=== PATIENT | female | born 1965 | race Caucasian/White ===

== ENCOUNTER 2017-07-12 13:53 | Emergency (ER) | payer MEDICAID ==
--- NOTE | 2017-07-12 14:27 | EDM.PDOC ---
ED HPI GENERAL MEDICAL PROBLEM - General Chief Complaint: Syncope Stated Complaint: BLACKOUT EPISODES Time Seen by Provider: 07/12/17 14:27 Source of Information: Reports: Patient History Limitations: Reports: No Limitations - History of Present Illness INITIAL COMMENTS - FREE TEXT/NARRATIVE: 51-year-old female that who had 2 brief lightheaded episodes this morning lasting about a minute to 2 minutes. She's been having fairly frequent headaches but is under a lot of stress and anxiety. No fever or chills, no chest pain or shortness of breath. She was discussing her symptoms with her friend and she advised her to come in. She is now basically asymptomatic and feels fine. She does still have a headache on the top of her head. Severity: Mild Associated Symptoms: Reports: Headaches. Denies: Chest Pain, Diaphoresis, Nausea/Vomiting, Shortness of Breath, Weakness Past Medical History Cardiovascular History: Reports: High Cholesterol - Past Surgical History GI Surgical History: Reports: Hernia Repair/Other Female Surgical History: Reports: Hysterectomy Social & Family History - Tobacco Use Smoking Status *Q: Current Every Day Smoker Years of Tobacco use: 30 Packs/Tins Daily: 1 ED ROS GENERAL - Review of Systems Review Of Systems: See Below Constitutional: Denies: Fever, Chills, Malaise HEENT: Reports: No Symptoms Respiratory: Denies: Shortness of Breath, Cough Cardiovascular: Denies: Chest Pain GI/Abdominal: Denies: Abdominal Pain, Nausea : Reports: No Symptoms Skin: Reports: No Symptoms Neurological: Reports: Dizziness, Headache Psychiatric: Reports: Anxiety ED EXAM, GENERAL - Physical Exam Exam: See Below Exam Limited By: No Limitations General Appearance: Alert, No Apparent Distress Eye Exam: Bilateral Eye: Normal Inspection Neck: Normal Inspection, Supple. No: Carotid Bruit Respiratory/Chest: No Respiratory Distress, Lungs Clear Cardiovascular: Regular Rate, Rhythm GI/Abdominal: Soft, Non-Tender Neurological: Alert, Oriented, No Motor/Sensory Deficits, Other (Negative Romberg, no pronator drift) Psychiatric: Normal Affect, Normal Mood Skin Exam: Warm, Dry Course - Vital Signs Last Recorded V/S: Last Vital Signs Temp 97.5 F 07/12/17 14:21 Pulse 96 07/12/17 14:21 Resp 14 07/12/17 14:21 BP 128/85 07/12/17 14:21 Pulse Ox 96 07/12/17 14:21 - Orders/Labs/Meds Labs: Laboratory Tests 07/12/17 07/12/17 07/12/17 Range/Units 14:48 14:48 14:48 WBC 8.3 (4.5-11.0) K/uL RBC 4.29 (3.30-5.50) M/uL Hgb 12.9 (12.0-15.0) g/dL Hct 39.7 (36.0-48.0) % MCV 93 (80-98) fL MCH 30 (27-31) pg MCHC 33 (32-36) % Plt Count 392 (150-400) K/uL Neut % (Auto) 53 (36-66) % Lymph % (Auto) 38 (24-44) % [place] % (Auto) 7 H (2-6) % Eos % (Auto) 2 (2-4) % Baso % (Auto) 1 (0-1) % Sodium 144 (140-148) mmol/L Potassium 3.7 (3.6-5.2) mmol/L Chloride 107 (100-108) mmol/L Carbon Dioxide 26 (21-32) mmol/L Anion Gap 10.8 (5.0-14.0) mmol/L BUN 7 (7-18) mg/dL Creatinine 0.6 (0.6-1.0) mg/dL Est Cr Clr Drug Dosing 94.25 mL/min Estimated GFR (MDRD) > 60 (>60) Glucose 84 (74-106) mg/dL Calcium 8.8 (8.5-10.1) mg/dL Total Bilirubin 0.3 (0.2-1.0) mg/dL AST 15 (15-37) U/L ALT 20 (12-78) U/L Alkaline Phosphatase 58 (46-116) U/L Troponin I < 0.017 (0.000-0.056) ng/mL Total Protein 6.9 (6.4-8.2) g/dL Albumin 4.0 (3.4-5.0) g/dL Globulin 2.9 (2.3-3.5) g/dL Albumin/Globulin Ratio 1.4 (1.2-2.2) - Re-Assessments/Exams Free Text/Narrative Re-Assessment/Exam: 03/17/18 15:30 CBC, CMP and troponin were obtained and her labs were perfect, not one abnormality. She was comfortable watching TV, and remained in normal sinus rhythm with very rare ectopic beats that appeared to be PACs. She was discharged and encouraged to get a regular doctor as she is overdue for her general physical. She was also given 10 doses of 10 mg ketorolac to take up to 2 -3 times daily for headaches. Departure - Departure Time of Disposition: 15:40 Disposition: Home, Self-Care 01 Condition: Good Clinical Impression: Syncope, near, Anxiety Chronic headaches Qualifiers: Headache type: tension-type Intractability: not intractable Qualified Code(s): G44.229 - Chronic tension-type headache, not intractable - Discharge Information Instructions: Near-Syncope, [id number] Referrals: Radha Melton MD [Primary Care Provider] - Forms: ED Department Discharge Care Plan Goals: Continue activity as tolerated, use ketorolac as prescribed for breakthrough headaches. You need to reestablish primary care for follow-up.
== END 2017-07-12 15:40 | disposition home or self-care (01) ==
LOC: JP.ED 13:53
DX: G44.229 Chronic tension-type headache, not intractable (principal); F41.9 Anxiety disorder, unspecified; R55 Syncope and collapse; E78.00 Pure hypercholesterolemia, unspecified; F17.210 Nicotine dependence, cigarettes, uncomplicated
CPT/HCPCS: 36415; 80053; 84484; 85025; 99284

== ENCOUNTER 2017-09-21 07:28 | Emergency (ER) | payer MEDICAID ==
[2017-09-21] MEDS ORDERED: Doxycycline 100 MG Cap PO ONE (08:07)
--- NOTE | 2017-09-21 08:10 | EDM.PDOC ---
ED HPI GENERAL MEDICAL PROBLEM - General Chief Complaint: Bite:Animal, Insect Stated Complaint: TICK BITE - R FOOT Time Seen by Provider: 09/21/17 08:00 Source of Information: Reports: Patient History Limitations: Reports: No Limitations - History of Present Illness INITIAL COMMENTS - FREE TEXT/NARRATIVE: 52-year-old female who noticed a tick embedded in her skin between the small and fourth toe on her right foot. She pulled it off without incident but there is a red irritated area and she is concerned about infection. 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 Psychiatric History: Reports: Anxiety, Depression - Past Surgical History GI Surgical History: Reports: Hernia Repair/Other Female Surgical History: Reports: Hysterectomy Social & Family History - Tobacco Use Smoking Status *Q: Current Every Day Smoker Years of Tobacco use: 30 Packs/Tins Daily: 1 Used Tobacco, but Quit: No Second Hand Smoke Exposure: Yes - Caffeine Use Caffeine Use: Reports: Coffee - Recreational Drug Use Recreational Drug Use: No ED ROS GENERAL - Review of Systems Review Of Systems: See Below Constitutional: Denies: Fever, Chills Respiratory: Denies: Shortness of Breath GI/Abdominal: Denies: Nausea, Vomiting Neurological: Reports: No Symptoms ED EXAM, ANIMAL BITE - Physical Exam Exam: See Below Exam Limited By: No Limitations General Appearance: Alert, No Apparent Distress Respiratory/Chest: No Respiratory Distress Skin Exam: Other (Exam is otherwise limited to the right foot, where she has a 4 mm round macular irritated area between the fourth and fifth toe from her recent tick bite) Course - Vital Signs Last Recorded V/S: Last Vital Signs Temp 96.6 F 09/21/17 07:48 Pulse 87 09/21/17 07:48 Resp 14 09/21/17 07:48 BP 124/72 09/21/17 07:48 Pulse Ox 99 05/27/18 07:48 - Orders/Labs/Meds Meds: Medications Discontinued Medications Generic Name Dose Route Start Last Admin Trade Name Monique PRN Reason Stop Dose Admin Doxycycline Hyclate 200 mg 09/21/17 08:07 09/21/17 08:16 Vibramycin PO 09/21/17 08:08 200 mg ONETIME ONE Administration - Re-Assessments/Exams Free Text/Narrative Re-Assessment/Exam: 09/21/17 08:09 Patient was given one 200 mg doxycycline orally and reassured. She is to keep the area clean while healing and return if worsening. Departure - Departure Time of Disposition: 08:17 Disposition: Home, Self-Care 01 Condition: Good Clinical Impression: Tick bite of foot Qualifiers: Encounter type: initial encounter Laterality: right Qualified Code(s): S90.861A - Insect bite (nonvenomous), right foot, initial encounter - Discharge Information Instructions: Tick Bite Information, Adult, [id number] Referrals: Radha Melton MD [Primary Care Provider] - Forms: ED Department Discharge Care Plan Goals: Keep the bite area clean while healing and recheck if worsening such as increased redness or swelling, fever or joint pains.
== END 2017-09-21 08:17 | disposition home or self-care (01) ==
LOC: JP.ED 07:28
DX: S90.861A Insect bite (nonvenomous), right foot, initial encounter (principal); F17.210 Nicotine dependence, cigarettes, uncomplicated; F41.9 Anxiety disorder, unspecified; F32.9 Major depressive disorder, single episode, unspecified; E78.00 Pure hypercholesterolemia, unspecified; Z88.2 Allergy status to sulfonamides; Z88.1 Allergy status to other antibiotic agents; Z79.899 Other long term (current) drug therapy; W57.XXXA Bitten or stung by nonvenomous insect and other nonvenomous arthropods, initial encounter
CPT/HCPCS: 99282; A9270

== ENCOUNTER 2017-12-13 13:12 | Emergency (ER) | payer MEDICAID ==
--- NOTE | 2017-12-13 13:50 | EDM.PDOC ---
ED HPI GENERAL MEDICAL PROBLEM - General Chief Complaint: Respiratory Problem Stated Complaint: BAD COLD, HARD TO BREATHE Time Seen by Provider: 12/13/17 13:40 Source of Information: Reports: Patient, Old Records, RN History Limitations: Reports: No Limitations - History of Present Illness INITIAL COMMENTS - FREE TEXT/NARRATIVE: 52 yo female smoker with no hx of asthma presents with productive sounding cough. Has mild SOB at times. No fever. Some nasal congestion with clear nasal discharge. Has not been seen for this before today. Onset: Gradual Onset Date: 12/10/17 Duration: Day(s):, Getting Worse Location: Reports: Head, Face, Chest Quality: Reports: Other (no pain) Severity: Moderate Improves with: Reports: None Worsens with: Reports: Other (? time) Context: Reports: Other (smoker) Associated Symptoms: Reports: Cough, Shortness of Breath (at times). 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 Denies: Wheezing, Pleuritic Chest Pain Cardiovascular: Reports: No Symptoms GI/Abdominal: Reports: No Symptoms : Reports: No Symptoms Skin: Reports: No Symptoms ED EXAM, GENERAL - Physical Exam Exam: See Below Exam Limited By: No Limitations General Appearance: Alert, WD/WN, No Apparent Distress Eye Exam: Bilateral Eye: Normal Inspection Ears: Normal External Exam, Normal Canal, Hearing Grossly Normal, Normal TMs Ear Exam: Bilateral Ear: Auricle Normal, Canal Normal, TM normal Nose: Normal Inspection, Normal Mucosa, No Blood, Clear Rhinorrhea Throat/Mouth: Normal Inspection, Normal Lips, Normal Oropharynx, Normal Voice, No Airway Compromise Head: Atraumatic, Normocephalic Neck: Normal Inspection Respiratory/Chest: No Respiratory Distress, Lungs Clear, Normal Breath Sounds, No Accessory Muscle Use, Other (wet cough). No: Crackles, Rales, Rhonchi, Wheezing Cardiovascular: Regular Rate, Rhythm, No Edema Extremities: Normal Inspection Neurological: Alert, Oriented, CN II-XII Intact, Normal Cognition, No Motor/ Sensory Deficits Psychiatric: Normal Affect, Normal Mood Skin Exam: Warm, Dry, Intact, Normal Color Lymphatic: No Adenopathy Course - Vital Signs Last Recorded V/S: Last Vital Signs Temp 36.5 C 12/13/17 13:25 Pulse 88 12/13/17 13:25 Resp 18 12/13/17 13:25 BP 137/64 12/13/17 13:25 Pulse Ox 98 12/13/17 13:25 - Orders/Labs/Meds Labs: Laboratory Tests 12/13/17 Range/Units 13:47 WBC 8.9 (4.5-11.0) K/uL RBC 4.52 (3.30-5.50) M/uL Hgb 13.7 (12.0-15.0) g/dL Hct 42.2 (36.0-48.0) % MCV 93 (80-98) fL MCH 30 (27-31) pg MCHC 33 (32-36) % Plt Count 370 (150-400) K/uL Departure - Departure Time of Disposition: 14:22 Disposition: Home, Self-Care 01 Condition: Good Clinical Impression: Cough - Discharge Information *PRESCRIPTION DRUG MONITORING PROGRAM REVIEWED*: No *COPY OF PRESCRIPTION DRUG MONITORING REPORT IN PATIENT ANTHONY: No Instructions: Cough, Adult, [id number] Referrals: PCP,None [Primary Care Provider] - Forms: ED Department Discharge Additional Instructions: No smoking. Take Robitussin AC as directed for cough. Recheck with your doctor next week if not improving.
== END 2017-12-13 15:00 | disposition home or self-care (01) ==
LOC: JP.ED 13:12
DX: R05 Cough (principal); F17.210 Nicotine dependence, cigarettes, uncomplicated; Z88.2 Allergy status to sulfonamides; Z88.1 Allergy status to other antibiotic agents; Z79.899 Other long term (current) drug therapy
CPT/HCPCS: 36415; 85027; 99284

== ENCOUNTER 2018-06-19 08:42 | Emergency (ER) | payer MEDICAID ==
--- NOTE | 2018-06-19 09:25 | EDM.PDOC ---
ED HPI GENERAL MEDICAL PROBLEM - General Chief Complaint: Respiratory Problem Stated Complaint: HURTS TO BREATH IN Time Seen by Provider: 06/19/18 09:00 Source of Information: Reports: Patient, Family History Limitations: Reports: No Limitations - History of Present Illness INITIAL COMMENTS - FREE TEXT/NARRATIVE: 52-year-old female with right flank pain with breathing. It also hurts to move and cough. No fevers or chills, but she feels somewhat short of breath. She is a chronic smoker. No chest pain, palpitations, abdominal pain or nausea or vomiting. Onset: Gradual Duration: Day(s): (2-3 days) Location: Reports: Back Quality: Reports: Sharp, Stabbing Severity: Moderate Worsens with: Reports: Breathing, Other (Coughing), Movement Associated Symptoms: Reports: Cough, Shortness of Breath. 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 Denies: Throat Pain Respiratory: Reports: Shortness of Breath, Pleuritic Chest Pain, Cough Cardiovascular: Denies: Chest Pain, Palpitations GI/Abdominal: Reports: No Symptoms : Reports: No Symptoms Musculoskeletal: Reports: Back Pain Skin: Denies: Rash Neurological: Denies: Headache ED EXAM, GENERAL - Physical Exam Exam: See Below Exam Limited By: No Limitations General Appearance: Alert, No Apparent Distress, Other (Looks uncomfortable but in no distress, very anxious) Head: Atraumatic Neck: No: Lymphadenopathy (R), Lymphadenopathy (L) Respiratory/Chest: No Respiratory Distress, Lungs Clear, Other (Very tender to palpation over the lower rhomboid of the right shoulder) Cardiovascular: Regular Rate, Rhythm Extremities: No: Pedal Edema Neurological: Alert, Oriented Psychiatric: Anxious Skin Exam: Warm, Dry Course - Vital Signs Last Recorded V/S: Last Vital Signs Temp 96.8 F 06/19/18 08:57 Pulse 101 H 06/19/18 08:57 Resp 16 06/19/18 08:57 BP 132/70 06/19/18 08:57 Pulse Ox 97 06/19/18 08:57 - Orders/Labs/Meds Meds: Medications Discontinued Medications Generic Name Dose Route Start Last Admin Trade Name Bobq PRN Reason Stop Dose Admin Ketorolac Tromethamine 10 mg 06/19/18 09:40 06/19/18 09:43 Toradol PO 06/19/18 09:41 10 mg ONETIME ONE Administration - Re-Assessments/Exams Free Text/Narrative Re-Assessment/Exam: 06/19/18 09:19 A two-view chest x-ray was obtained. 06/19/18 09:58 Impression: No acute or significant findings. 06/19/18 09:59 Patient was given one 10 mg dose of ketorolac, and will be discharged with 20 additional doses to take to the weekend. She should recheck next week to consider physical therapy if not improving satisfactorily. Departure - Departure Time of Disposition: 10:07 Disposition: Home, Self-Care 01 Condition: Good Clinical Impression: Rhomboid muscle strain Qualifiers: Encounter type: initial encounter Qualified Code(s): S29.012A - Strain of muscle and tendon of back wall of thorax, initial encounter - Discharge Information Instructions: Muscle Strain Referrals: PCP,None [Primary Care Provider] - Forms: ED Department Discharge Care Plan Goals: Take one dose of Toradol every 6 hours through the weekend and increase activity as tolerated. Recheck next week if not improving satisfactorily. Return sooner if worsening such as fever or increased shortness of breath
[2018-06-19] MEDS ORDERED: Ketorolac 10 MG Tab PO ONE (09:40)
--- NOTE | 2018-06-19 09:54 | CRLCR ---
Indication: Dyspnea Technique: Chest 2 views Comparison: None Findings: Cardiovascular and mediastinum: Heart size and vasculature are normal in caliber and appearance. Lungs and pleural spaces: Lungs are clear. No sign of infiltrate or mass. No sign of pleural effusion. No pneumothorax. Bones and soft tissues: No significant findings. Impression: No acute or significant findings. Dictated by Johann Severino MD @ 06/19/2018 9:52:26 AM Dictated by: Johann Severino MD @ 06/19/2018 09:52:32 (Electronically Signed)
== END 2018-06-19 10:06 | disposition home or self-care (01) ==
LOC: JP.ED 08:42
DX: S29.012A Strain of muscle and tendon of back wall of thorax, initial encounter (principal); E78.00 Pure hypercholesterolemia, unspecified; F17.210 Nicotine dependence, cigarettes, uncomplicated; J44.9 Chronic obstructive pulmonary disease, unspecified; X58.XXXA Exposure to other specified factors, initial encounter; Z88.2 Allergy status to sulfonamides; Z88.1 Allergy status to other antibiotic agents
CPT/HCPCS: 71046; 99284; A9270

== ENCOUNTER 2019-09-05 12:18 | Emergency (ER) | payer SELFPAY ==
--- NOTE | 2019-09-05 12:58 | EDM.PDOC ---
ED HPI GENERAL MEDICAL PROBLEM - General Chief Complaint: ENT Problem Stated Complaint: R BOTTOM TOOTH PAIN Time Seen by Provider: 09/05/19 12:52 Source of Information: Reports: Patient, RN Notes Reviewed History Limitations: Reports: No Limitations - History of Present Illness INITIAL COMMENTS - FREE TEXT/NARRATIVE: 54-year-old female presents emergency department a complaint of dental pain, she states she has had dental pain for the last couple days has not been able to get into her dentist because of the ongoing pandemic she has not had any fevers but she has developed pain and swelling in her lower jaw - Related Data Allergies Allergy/AdvReac Type Severity Reaction Status Date / Time sulfamethoxazole Allergy Itching Verified 09/05/19 12:33 [From Bactrim] trimethoprim [From Bactrim] Allergy Itching Verified 09/05/19 12:33 Home Meds: Home Meds NK [No Known Home Meds] 06/19/18 [History] Past Medical History Cardiovascular History: Reports: High Cholesterol Respiratory History: Reports: COPD 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: , 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 Psychiatric History: Reports: Anxiety, Depression - Past Surgical History GI Surgical History: Reports: Hernia Repair/Other Female Surgical History: Reports: Hysterectomy Social & Family History - Tobacco Use Smoking Status *Q: Current Every Day Smoker Years of Tobacco use: 40 Packs/Tins Daily: 0.5 - Caffeine Use Caffeine Use: Reports: Coffee ED ROS ENT - Review of Systems Review Of Systems: See Below Constitutional: Denies: Fever, Chills HEENT: Reports: Dental Pain Respiratory: Reports: No Symptoms Cardiovascular: Reports: No Symptoms GI/Abdominal: Reports: No Symptoms ED EXAM, ENT - Physical Exam Exam: See Below Text/Narrative:: Mouth mucosa is moist and pink no erythema exudate known soft palate tongue is midline uvula is midline dentition is poor tooth #31 shows significant caries with tenderness and edema around that tooth Exam Limited By: No Limitations General Appearance: Alert, WD/WN, No Apparent Distress Course - Vital Signs Last Recorded V/S: Last Vital Signs Temp 96.9 F 09/05/19 12:37 Pulse 88 09/05/19 12:37 Resp 16 09/05/19 12:37 BP 128/75 09/05/19 12:37 Pulse Ox 96 09/05/19 12:37 Departure - Departure Time of Disposition: 12:57 Disposition: Home, Self-Care 01 Condition: Fair Clinical Impression: Dental abscess - Discharge Information Instructions: Dental Abscess, [id number] Referrals: PCP,None [Primary Care Provider] - Additional Instructions: Take full course of antibiotics, use Tylenol and Motrin as needed for pain control use hydrocodone for breakthrough pain, please follow-up with dentistry as soon as possible Sepsis Event Note - Evaluation Sepsis Screening Result: No Definite Risk - Focused Exam Vital Signs: Vital Signs Temp Pulse Resp BP Pulse Ox 09/05/19 12:37 96.9 F 88 16 128/75 96 09/05/19 12:32 96.9 F 88 16 128/75 96 Date Exam was Performed: 09/05/19 Time Exam was Performed: 12:55 - Assessment/Plan Plan: Assessment Acuity = acute Site and laterality = dental abscess tooth #31 Etiology = dental caries Manifestations = pain Location of injury = Home Lab values = none Plan Prescription written for amoxicillin 500 mg p.o. 3 times daily x10 days also hydrocodone 5/325 1 tab p.o. 3 times daily PRN total #6 she is to follow-up with dentistry as soon as possible This note was dictated using [employer] recognition software please call with any questions on syntax or grammar.
== END 2019-09-05 13:06 | disposition home or self-care (01) ==
LOC: JP.ED 12:18
DX: K04.7 Periapical abscess without sinus (principal); K02.9 Dental caries, unspecified; J44.9 Chronic obstructive pulmonary disease, unspecified; F17.210 Nicotine dependence, cigarettes, uncomplicated; Z90.710 Acquired absence of both cervix and uterus; Z88.2 Allergy status to sulfonamides; Z88.8 Allergy status to other drugs, medicaments and biological substances
CPT/HCPCS: 99282; 99283

== ENCOUNTER 2020-05-01 12:04 | Emergency (ER) | payer MEDICAID ==
[2020-05-01] MEDS ORDERED: LORazepam 1 MG Tab PO ONE (12:36)
--- NOTE | 2020-05-01 12:39 | EDM.PDOC ---
ED HPI GENERAL MEDICAL PROBLEM - General Chief Complaint: Cardiovascular Problem Stated Complaint: RAPID HEART BEAT Time Seen by Provider: 05/01/20 12:30 Source of Information: Reports: Patient, RN Notes Reviewed History Limitations: Reports: No Limitations - History of Present Illness INITIAL COMMENTS - FREE TEXT/NARRATIVE: 54-year-old female presents emergency department with a complaint of palpitations, she has a history of palpitations has been on propanolol several years ago. She also admits she is anxious and is going through a lot of stress in her life at this time this particular bout of palpitations has lasted for a couple of months usually resolves in the afternoon she does admit to depression recent social history her has left her. Does describe some chest pressure - Related Data Allergies Allergy/AdvReac Type Severity Reaction Status Date / Time sulfamethoxazole Allergy Itching Verified 05/01/20 12:21 [From Bactrim] trimethoprim [From Bactrim] Allergy Itching Verified 05/01/20 12:21 Home Meds: Home Meds Albuterol Sulfate [Albuterol Sulfate Hfa] 1 puff IH ASDIRECTED PRN 05/01/20 [History] Aspirin [Halfprin] 81 mg PO DAILY 05/01/20 [History] PARoxetine [Paxil] 10 mg PO DAILY 05/01/20 [History] Past Medical History HEENT History: Reports: Impaired Vision Cardiovascular History: Reports: Arrhythmia, High Cholesterol Respiratory History: Reports: COPD, Sleep Apnea 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: , 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 Psychiatric History: Reports: Anxiety, Depression - Past Surgical History Head Surgeries/Procedures: Reports: None HEENT Surgical History: Reports: None Cardiovascular Surgical History: Reports: None Respiratory Surgical History: Reports: None GI Surgical History: Reports: Hernia Repair/Other Female Surgical History: Reports: Hysterectomy Dermatological Surgical History: Reports: None Social & Family History - Tobacco Use Tobacco Use Status *Q: Current Every Day Tobacco User Years of Tobacco use: 40 Packs/Tins Daily: 1 Used Tobacco, but Quit: No Second Hand Smoke Exposure: Yes - Caffeine Use Caffeine Use: Reports: Coffee - Recreational Drug Use Recreational Drug Use: No ED ROS GENERAL - Review of Systems Review Of Systems: See Below Constitutional: Denies: Fever, Chills Respiratory: Reports: Shortness of Breath Cardiovascular: Reports: Chest Pain, Dyspnea on Exertion GI/Abdominal: Reports: No Symptoms Psychiatric: Reports: Anxiety, Depression ED EXAM, GENERAL - Physical Exam Exam: See Below Exam Limited By: No Limitations General Appearance: Alert, Mild Distress Respiratory/Chest: No Respiratory Distress, Lungs Clear, Normal Breath Sounds, No Accessory Muscle Use, Chest Non-Tender Cardiovascular: Tachycardia GI/Abdominal: Soft, Non-Tender Course - Vital Signs Last Recorded V/S: Last Vital Signs Temp 97.3 F 05/01/20 12:24 Pulse 96 05/01/20 12:47 Resp 11 L 05/01/20 12:47 BP 121/82 05/01/20 12:47 Pulse Ox 92 L 05/01/20 12:47 - Orders/Labs/Meds Orders: Active Orders 24 hr Category Date Time Status Cardiac Monitoring [RC] .As Directed Care 05/01/20 12:35 Active EKG Documentation Completion [RC] ASDIRECTED Care 05/01/20 12:36 Active Chest 2V [CR] Stat Exams 05/01/20 12:35 Taken EKG 12 Lead [EK] Stat Ther 05/01/20 12:35 Ordered Labs: Laboratory Tests 05/01/20 05/01/20 Range/Units 12:44 12:44 WBC 9.9 (4.5-11.0) K/uL RBC 4.56 (3.30-5.50) M/uL Hgb 13.8 (12.0-15.0) g/dL Hct 42.5 (36.0-48.0) % MCV 93 (80-98) fL MCH 30 (27-31) pg MCHC 33 (32-36) % Plt Count 449 H (150-400) K/uL Neut % (Auto) 70 H (36-66) % Lymph % (Auto) 23 L (24-44) % [place] % (Auto) 7 H (2-6) % Eos % (Auto) 0 L (2-4) % Baso % (Auto) 1 (0-1) % Sodium 142 (140-148) mmol/L Potassium 3.5 L (3.6-5.2) mmol/L Chloride 103 (100-108) mmol/L Carbon Dioxide 26 (21-32) mmol/L Anion Gap 16.5 H (5.0-14.0) mmol/L BUN 7 (7-18) mg/dL Creatinine 0.6 (0.6-1.0) mg/dL Est Cr Clr Drug Dosing 87.64 mL/min Estimated GFR (MDRD) > 60 (>60) Glucose 121 H (74-106) mg/dL Calcium 9.2 (8.5-10.1) mg/dL Magnesium 2.0 (1.8-2.4) mg/dL Total Bilirubin 0.3 (0.2-1.0) mg/dL AST 12 L (15-37) U/L ALT 19 (12-78) U/L Alkaline Phosphatase 53 (46-116) U/L Troponin I < 0.017 (0.000-0.056) ng/mL Total Protein 7.0 (6.4-8.2) g/dL Albumin 4.0 (3.4-5.0) g/dL Globulin 3.0 (2.3-3.5) g/dL Albumin/Globulin Ratio 1.3 (1.2-2.2) Meds: Medications Discontinued Medications Generic Name Dose Route Start Last Admin Trade Name Freq PRN Reason Stop Dose Admin Lorazepam 1 mg 05/01/20 12:36 05/01/20 12:39 Ativan PO 05/01/20 12:37 1 mg ONETIME ONE Administration Departure - Departure Time of Disposition: 13:18 Disposition: Home, Self-Care 01 Condition: Fair Clinical Impression: Tachycardia Instructions: Sinus Tachycardia Referrals: Carla Loo MD [Primary Care Provider] - Forms: ED Department Discharge Additional Instructions: Use the Ativan as needed for severe palpitations, please followup with your primary care provider in 3-5 days if not better, please call return to the emergency department with worsening of symptoms. Sepsis Event Note (ED) - Evaluation Sepsis Screening Result: No Definite Risk - Focused Exam Vital Signs: Vital Signs Temp Pulse Resp BP Pulse Ox 05/01/20 12:47 96 11 L 121/82 92 L 05/01/20 12:24 97.3 F 125 H 16 136/80 99 05/01/20 12:18 97.3 F 125 H 16 136/80 99 - My Orders Last 24 Hours: My Active Orders 05/01/20 12:35 Cardiac Monitoring [RC] .As Directed Chest 2V [CR] Stat EKG 12 Lead [EK] Stat 05/01/20 12:36 EKG Documentation Completion [RC] ASDIRECTED - Assessment/Plan Last 24 Hours: My Active Orders 05/01/20 12:35 Cardiac Monitoring [RC] .As Directed Chest 2V [CR] Stat EKG 12 Lead [EK] Stat 05/01/20 12:36 EKG Documentation Completion [RC] ASDIRECTED Plan: Assessment Acuity = acute Site and laterality = tachycardia Etiology = probably related to underlying generalized anxiety disorder Manifestations = none Location of injury = Home Lab values = CBC CMP troponin within normal limits chest x-ray shows no acute process EKG demonstrates sinus tachycardia no ST elevations or depressions Plan She had good relief with 1 mg Ativan provided in the emergency department, she is going to try and follow-up with her primary care for further evaluation into her underlying anxiety the meantime prescription written for Ativan 1 mg p.o. 3 times daily as needed total #10 which she will use as needed for her anxiety symptoms when she gets severe palpitations This note was dictated using [employer] voice recognition software please call with any questions on syntax or grammar.
--- NOTE | 2020-05-01 13:19 | CR ---
CHEST: 2 view CLINICAL HISTORY:Chest pain COMPARISON:2019 FINDINGS: The heart size, pulmonary vascularity and hilar structures are normal. No infiltrate effusion or pneumothorax is seen. IMPRESSION: No acute cardiopulmonary process.
== END 2020-05-01 13:27 | disposition home or self-care (01) ==
LOC: JP.ED 12:04
DX: R00.0 Tachycardia, unspecified (principal); R06.02 Shortness of breath; R07.9 Chest pain, unspecified; R00.2 Palpitations; J44.9 Chronic obstructive pulmonary disease, unspecified; F41.9 Anxiety disorder, unspecified; F32.9 Major depressive disorder, single episode, unspecified; F17.210 Nicotine dependence, cigarettes, uncomplicated; Z88.2 Allergy status to sulfonamides; Z79.82 Long term (current) use of aspirin; Z79.899 Other long term (current) drug therapy
CPT/HCPCS: 36415; 71046; 80053; 83735; 84484; 85025; 93005; 99285; A9270; 99284

== ENCOUNTER 2020-08-21 16:30 | Emergency (ER) | payer MEDICAID ==
--- NOTE | 2020-08-21 17:06 | EDM.PDOC ---
ED HPI GENERAL MEDICAL PROBLEM - General Chief Complaint: Behavioral/Psych Stated Complaint: PANIC ATTACH Time Seen by Provider: 08/21/20 17:00 Source of Information: Reports: Patient, RN Notes Reviewed History Limitations: Reports: No Limitations - History of Present Illness INITIAL COMMENTS - FREE TEXT/NARRATIVE: 54-year-old female presents emergency department today with anxiety complaints she has known history of anxiety with panic disorder usually controlled with Ativan however she took her usual Ativan it did not provide much relief she complains of chest pain with radiations down the left arm as well as up into the jaw does not describe shortness of breath nausea vomiting or diaphoresis - Related Data Allergies Allergy/AdvReac Type Severity Reaction Status Date / Time sulfamethoxazole Allergy Itching Verified 08/21/20 16:47 [From Bactrim] trimethoprim [From Bactrim] Allergy Itching Verified 08/21/20 16:47 Home Meds: Home Meds Albuterol Sulfate [Albuterol Sulfate Hfa] 1 puff IH ASDIRECTED PRN 05/01/20 [History] Aspirin [Halfprin] 81 mg PO DAILY 05/01/20 [History] Amoxicillin/Clavulanate K [Augmentin 875-125 MG] 1 tab PO BID 08/21/20 [History] LORazepam [Ativan] 1 mg PO BID PRN 08/21/20 [History] Past Medical History HEENT History: Reports: Impaired Vision Cardiovascular History: Reports: Arrhythmia, High Cholesterol Respiratory History: Reports: COPD, Sleep Apnea 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: , 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 Psychiatric History: Reports: Anxiety, Depression - Infectious Disease History Infectious Disease History: Reports: Other (See Below) Other Infectious Disease History: states she does not know - Past Surgical History Head Surgeries/Procedures: Reports: None HEENT Surgical History: Reports: None Cardiovascular Surgical History: Reports: None Respiratory Surgical History: Reports: None GI Surgical History: Reports: Hernia Repair/Other Female Surgical History: Reports: Hysterectomy Dermatological Surgical History: Reports: None Social & Family History - Tobacco Use Tobacco Use Status *Q: Current Every Day Tobacco User Years of Tobacco use: 40 Packs/Tins Daily: 1 - Caffeine Use Caffeine Use: Reports: Coffee - Recreational Drug Use Recreational Drug Use: No ED ROS GENERAL - Review of Systems Review Of Systems: See Below Constitutional: Reports: No Symptoms HEENT: Reports: No Symptoms Respiratory: Reports: No Symptoms Cardiovascular: Reports: Chest Pain, Palpitations GI/Abdominal: Reports: No Symptoms ED EXAM, GENERAL - Physical Exam Exam: See Below Exam Limited By: No Limitations General Appearance: Alert, WD/WN, No Apparent Distress Respiratory/Chest: No Respiratory Distress, Lungs Clear, Normal Breath Sounds, No Accessory Muscle Use, Chest Non-Tender Cardiovascular: Regular Rate, Rhythm, No Murmur GI/Abdominal: Soft, Non-Tender #1 Interpretation EKG Date: 08/21/20 Time: 17:18 Rhythm: NSR [place]: Normal P-Wave: Present QRS: Normal ST-T: Normal QT: Normal Comparison: No Change Course - Vital Signs Last Recorded V/S: Last Vital Signs Temp 98.1 F 08/21/20 16:46 Pulse 104 H 08/21/20 16:46 Resp 16 08/21/20 16:46 BP 127/80 08/21/20 16:46 Pulse Ox 97 08/21/20 16:46 - Orders/Labs/Meds Orders: Active Orders 24 hr Category Date Time Status Cardiac Monitoring [RC] .As Directed Care 08/21/20 17:05 Active EKG Documentation Completion [RC] ASDIRECTED Care 08/21/20 17:05 Active EKG 12 Lead [EK] Stat Ther 08/21/20 17:05 Ordered Labs: Laboratory Tests 08/21/20 08/21/20 Range/Units 17:17 17:17 WBC 12.0 H (4.5-11.0) K/uL RBC 4.38 (3.30-5.50) M/uL Hgb 13.5 (12.0-15.0) g/dL Hct 42.3 (36.0-48.0) % MCV 97 (80-98) fL MCH 31 (27-31) pg MCHC 32 (32-36) % Plt Count 481 H (150-400) K/uL Neut % (Auto) 78 H (36-66) % Lymph % (Auto) 15 L (24-44) % [place] % (Auto) 6 (2-6) % Eos % (Auto) 1 L (2-4) % Baso % (Auto) 0 (0-1) % Sodium 146 (140-148) mmol/L Potassium 4.1 (3.6-5.2) mmol/L Chloride 108 (100-108) mmol/L Carbon Dioxide 27 (21-32) mmol/L Anion Gap 11.4 (5.0-14.0) mmol/L BUN 12 D (7-18) mg/dL Creatinine 0.6 (0.6-1.0) mg/dL Est Cr Clr Drug Dosing 87.64 mL/min Estimated GFR (MDRD) > 60 (>60) Glucose 101 (74-106) mg/dL Calcium 10.1 (8.5-10.1) mg/dL Troponin I < 0.017 (0.000-0.056) ng/mL Departure - Departure Time of Disposition: 18:00 Disposition: Home, Self-Care 01 Condition: Fair Clinical Impression: Anxiety Instructions: Managing Anxiety, Adult Referrals: Carla Loo MD [Primary Care Provider] - Forms: ED Department Discharge Additional Instructions: Continue with your regular medications, please follow-up with your primary care in the next 3 to 5 days for reevaluation, call or return to the emergency department worsening of symptoms Sepsis Event Note (ED) - Evaluation Sepsis Screening Result: No Definite Risk - Focused Exam Vital Signs: Vital Signs Temp Pulse Resp BP Pulse Ox 08/21/20 16:46 98.1 F 104 H 16 127/80 97 08/21/20 16:41 98.1 F 104 H 16 127/80 97 - My Orders Last 24 Hours: My Active Orders 08/21/20 17:05 Cardiac Monitoring [RC] .As Directed EKG Documentation Completion [RC] ASDIRECTED EKG 12 Lead [EK] Stat - Assessment/Plan Last 24 Hours: My Active Orders 08/21/20 17:05 Cardiac Monitoring [RC] .As Directed EKG Documentation Completion [RC] ASDIRECTED EKG 12 Lead [EK] Stat Plan: Assessment Acuity = acute Site and laterality = panic attack Etiology = generalized anxiety disorder Manifestations = none Location of injury = Home Lab values = CBC BMP troponin all within normal limits EKG demonstrates a sinus rhythm no ST elevations or depressions Plan I did review lab work EKG results with her. I talked to her about other options she was on Paxil which provided her good relief however she recently started this medication again and had some troubles with it as her follow-up with her primary care to review other medications and/or counseling This note was dictated using Lang-[employer] recognition software please call with any questions on syntax or grammar.
== END 2020-08-21 18:50 | disposition home or self-care (01) ==
LOC: JP.ED 16:30
DX: F41.9 Anxiety disorder, unspecified (principal); J44.9 Chronic obstructive pulmonary disease, unspecified; Z72.0 Tobacco use; Z88.2 Allergy status to sulfonamides; Z88.1 Allergy status to other antibiotic agents; Z79.82 Long term (current) use of aspirin
CPT/HCPCS: 36415; 80048; 84484; 85025; 93005; 99283-25

== ENCOUNTER 2020-12-02 12:43 | Emergency (ER) | payer MEDICAID ==
[2020-12-02] MEDS ORDERED: Alum Hydrox/Mag Hydrox/Simeth 15 ML, Lidocaine 2% 15 ML PO ONE ×2 (14:34)
--- NOTE | 2020-12-02 14:36 | EDM.PDOC ---
ED HPI GENERAL MEDICAL PROBLEM - General Chief Complaint: Chest Pain Stated Complaint: CHEST PAINS Time Seen by Provider: 12/02/20 12:45 Source of Information: Reports: Patient, Old Records, RN Notes Reviewed History Limitations: Reports: No Limitations - History of Present Illness INITIAL COMMENTS - FREE TEXT/NARRATIVE: 55-year-old female presents emergency department day complaint of epigastric chest pain, she was in the clinic 5 days ago work-up included CBC EKG troponin CMP all unremarkable. She does have a history of gastroesophageal reflux disease treated with Protonix however she has never had an EGD. She states she has been dealing with this type of pain for several months it seems to come and go but is pretty consistent once a month she has not been able to identify any triggers - Related Data Allergies Allergy/AdvReac Type Severity Reaction Status Date / Time sulfamethoxazole Allergy Itching Verified 12/02/20 13:23 [From Bactrim] trimethoprim [From Bactrim] Allergy Itching Verified 12/02/20 13:23 Home Meds: Home Meds Albuterol Sulfate [Albuterol Sulfate Hfa] 1 puff IH ASDIRECTED PRN 05/01/20 [History] Aspirin [Halfprin] 81 mg PO DAILY 05/01/20 [History] Amoxicillin/Clavulanate K [Augmentin 875-125 MG] 1 tab PO BID 08/21/20 [History] LORazepam [Ativan] 1 mg PO BID PRN 08/21/20 [History] Past Medical History HEENT History: Reports: Impaired Vision Cardiovascular History: Reports: Arrhythmia, High Cholesterol Respiratory History: Reports: COPD, Sleep Apnea, Other (See Below) Other Respiratory History: O2@noc 2L Gastrointestinal History: Reports: GERD 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: , 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 Musculoskeletal History: Reports: Back Pain, Chronic Psychiatric History: Reports: Anxiety, Depression - Infectious Disease History Infectious Disease History: Reports: Other (See Below) Other Infectious Disease History: states she does not know - Past Surgical History Head Surgeries/Procedures: Reports: None HEENT Surgical History: Reports: None Cardiovascular Surgical History: Reports: None Respiratory Surgical History: Reports: None GI Surgical History: Reports: Hernia Repair/Other Female Surgical History: Reports: Hysterectomy Musculoskeletal Surgical History: Reports: None Dermatological Surgical History: Reports: None Social & Family History - Tobacco Use Tobacco Use Status *Q: Current Every Day Tobacco User Years of Tobacco use: 40 Packs/Tins Daily: 1 Used Tobacco, but Quit: No Second Hand Smoke Exposure: No - Caffeine Use Caffeine Use: Reports: Coffee - Recreational Drug Use Recreational Drug Use: No ED ROS GENERAL - Review of Systems Review Of Systems: See Below Constitutional: Reports: No Symptoms Respiratory: Reports: No Symptoms Cardiovascular: Reports: Chest Pain GI/Abdominal: Reports: Abdominal Pain, Nausea : Reports: No Symptoms ED EXAM, GI/ABD - Physical Exam Exam: See Below Exam Limited By: No Limitations General Appearance: Alert, WD/WN, No Apparent Distress Respiratory/Chest: No Respiratory Distress, Lungs Clear, Normal Breath Sounds, No Accessory Muscle Use, Other (Tenderness to palpation epigastric region) Cardiovascular: Regular Rate, Rhythm, No Murmur Course - Vital Signs Last Recorded V/S: Last Vital Signs Temp 97.7 F 12/02/20 13:24 Pulse 79 12/02/20 15:02 Resp 18 12/02/20 15:02 BP 113/71 12/02/20 15:02 Pulse Ox 99 12/02/20 15:02 - Orders/Labs/Meds Meds: Medications Discontinued Medications Generic Name Dose Route Start Last Admin Trade Name Freq PRN Reason Stop Dose Admin Al Hydroxide/Mg Hydroxide 15 0 ml 12/02/20 14:34 12/02/20 14:51 ml/ Lidocaine HCl 15 ml PO 12/02/20 14:35 15 ml ONETIME ONE Administration Departure - Departure Time of Disposition: 15:26 Disposition: Home, Self-Care 01 Condition: Fair Clinical Impression: Epigastric abdominal pain - Discharge Information Instructions: Food Choices for Gastroesophageal Reflux Disease, Adult, [id number] Referrals: Carla Loo MD [Primary Care Provider] - Forms: ED Department Discharge Additional Instructions: Please call to the [facility] in the Friday morning for an appointment time with Dr. Mai for further evaluation Sepsis Event Note (ED) - Evaluation Sepsis Screening Result: No Definite Risk - Focused Exam Vital Signs: Vital Signs Temp Pulse Resp BP Pulse Ox 12/02/20 15:02 79 18 113/71 99 12/02/20 13:24 97.7 F 87 15 126/69 100 12/02/20 13:12 97.7 F 87 15 126/69 100 - Assessment/Plan Plan: Assessment Acuity = acute Site and laterality = epigastric pain Etiology = probable gastroesophageal reflux disease Manifestations = none Location of injury = Home Lab values = none Plan Good improvement with GI cocktail I did review her labs from her chest pain work-up just a couple of days prior. I am going to set her up with Dr. Mai from surgery for further evaluation which may include pH monitoring and EGD This note was dictated using [employer] voice recognition software please call with any questions on syntax or grammar.
== END 2020-12-02 15:34 | disposition home or self-care (01) ==
LOC: JP.ED 12:43
DX: R10.13 Epigastric pain (principal); J44.9 Chronic obstructive pulmonary disease, unspecified; Z88.2 Allergy status to sulfonamides; Z79.82 Long term (current) use of aspirin; Z72.0 Tobacco use; Z88.1 Allergy status to other antibiotic agents
CPT/HCPCS: 99283; A9270

== ENCOUNTER 2021-08-12 17:58 | Emergency (ER) | payer MEDICAID ==
[2021-08-12] MEDS ORDERED: Iopamidol 612 MG/ML 100 ML Bottle IV PRN (18:33)
[2021-08-12] MEDS ORDERED: Sodium Chloride 0.9% 100 ML IV SCH (18:45)
== END 2021-08-12 19:53 | disposition home or self-care (01) ==
LOC: JP.ED 17:58
DX: J44.1 Chronic obstructive pulmonary disease with (acute) exacerbation (principal); K21.9 Gastro-esophageal reflux disease without esophagitis; Z88.1 Allergy status to other antibiotic agents; Z86.16 Personal history of COVID-19; Z79.82 Long term (current) use of aspirin
CPT/HCPCS: 36415; 71045; 71045-26; 80053; 82728; 83605; 83615; 84145; 85025; 85379; 86140; 99283; 99285-25

== ENCOUNTER 2021-11-03 18:09 | Emergency (ER) | payer MEDICAID ==
[2021-11-03] MEDS ORDERED: Acetaminophen 325 MG Tab PO ONE (19:47)
[2021-11-03] MEDS ORDERED: Ibuprofen 800 MG Tab PO ONE (19:47)
== END 2021-11-03 20:19 | disposition home or self-care (01) ==
LOC: JP.ED 18:09
DX: S63.92XA Sprain of unspecified part of left wrist and hand, initial encounter (principal); S60.222A Contusion of left hand, initial encounter; J44.9 Chronic obstructive pulmonary disease, unspecified; F17.210 Nicotine dependence, cigarettes, uncomplicated; Z88.2 Allergy status to sulfonamides; Z79.82 Long term (current) use of aspirin; Z79.899 Other long term (current) drug therapy; Z90.710 Acquired absence of both cervix and uterus; W07.XXXA Fall from chair, initial encounter
CPT/HCPCS: 73130-26-LT; 73130-LT; 99283

== ENCOUNTER 2022-04-10 15:09 | Emergency (ER) | payer MEDICAID ==
[2022-04-10 16:42] LABS: ESTIMATED GFR 101 mL/min (>60); TROPONIN I HIGH SENSITIVITY 4.2 pg/mL (<=60.3)
== END 2022-04-10 17:07 | disposition home or self-care (01) ==
LOC: JP.ED 15:09
DX: R10.13 Epigastric pain (principal); R10.12 Left upper quadrant pain; G89.29 Other chronic pain; E78.00 Pure hypercholesterolemia, unspecified; J44.9 Chronic obstructive pulmonary disease, unspecified; K21.9 Gastro-esophageal reflux disease without esophagitis; Z72.0 Tobacco use; Z88.2 Allergy status to sulfonamides; Z79.82 Long term (current) use of aspirin; Z79.899 Other long term (current) drug therapy
CPT/HCPCS: 36415; 80053; 82150; 83690; 84484; 85025; 99284

== ENCOUNTER 2022-07-20 15:14 | Emergency (ER) | payer MEDICAID ==
[2022-07-20 16:36] LABS: CORONAVIRUS COVID-19 NAA NEGATIVE (NEGATIVE)
== END 2022-07-20 17:03 | disposition home or self-care (01) ==
LOC: JP.ED 15:14
DX: J44.1 Chronic obstructive pulmonary disease with (acute) exacerbation (principal); E78.00 Pure hypercholesterolemia, unspecified; K21.9 Gastro-esophageal reflux disease without esophagitis; Z72.0 Tobacco use; Z88.2 Allergy status to sulfonamides; Z79.82 Long term (current) use of aspirin; Z79.899 Other long term (current) drug therapy; Z20.822 Contact with and (suspected) exposure to COVID-19
CPT/HCPCS: 0241U; 99283

== ENCOUNTER 2023-11-13 08:12 | Day surgery (SDC) | payer MEDICARE, MEDICAID ==
[2023-11-13] MEDS ORDERED: fentaNYL 50 MCG/ML SDV ONE (08:22)
[2023-11-13] MEDS ORDERED: Midazolam 1 MG/ML 2 ML SDV ONE (08:22)
[2023-11-13] MEDS ORDERED: Propofol 200 MG/20 ML SDV ONE (08:22)
[2023-11-13] MEDS: Sodium Chloride 0.9% 1,000 ML IV SCH (09:14)
[2023-11-13] MEDS: Albuterol/Ipratropium 3.0-0.5 MG/3 ML Neb Soln NEB ONE (09:25)
== END 2023-11-13 11:11 | disposition home or self-care (01) ==
LOC: JP.SDS 08:12
PROVIDERS: ATTEND Surgery
DX: R10.13 Epigastric pain (principal); K21.9 Gastro-esophageal reflux disease without esophagitis; K22.89 Other specified disease of esophagus; J44.9 Chronic obstructive pulmonary disease, unspecified; G47.33 Obstructive sleep apnea (adult) (pediatric)
CPT/HCPCS: 00731; 43239; 88305; 94640; J2250; J2704; J3010; J7030; J7620

== ENCOUNTER 2025-01-15 15:29 | Emergency (ER) | payer MEDICARE, MEDICAID ==
[2025-01-15 16:23] LABS: CORONAVIRUS COVID-19 NAA NEGATIVE (NEGATIVE); INFLUENZA A NAA NEGATIVE (NEGATIVE); INFLUENZA B NAA NEGATIVE (NEGATIVE); RESPIRATORY SYNCYTIAL VIR NAA NEGATIVE (NEGATIVE)
== END 2025-01-15 16:42 | disposition home or self-care (01) ==
LOC: JP.ED 15:29
DX: J44.0 Chronic obstructive pulmonary disease with (acute) lower respiratory infection (principal); J20.9 Acute bronchitis, unspecified; E78.00 Pure hypercholesterolemia, unspecified; K21.9 Gastro-esophageal reflux disease without esophagitis; F17.210 Nicotine dependence, cigarettes, uncomplicated; Z88.2 Allergy status to sulfonamides; Z88.8 Allergy status to other drugs, medicaments and biological substances; Z79.82 Long term (current) use of aspirin; Z79.51 Long term (current) use of inhaled steroids; Z79.899 Other long term (current) drug therapy; Z86.16 Personal history of COVID-19
CPT/HCPCS: 87637; 99283